=== PATIENT | female | born 1935 | race Two or more races ===

== ENCOUNTER 2018-10-26 12:25 | Outpatient (CLI) | payer OTHER | END 2018-10-26 15:50 | disposition home or self-care (01) | LOC: SONOGRAMA 12:25 → MAMO-SONO 13:15 → SONOGRAMA 15:50 | DX: E05.20 Thyrotoxicosis with toxic multinodular goiter without thyrotoxic crisis or storm (principal) ==

== ENCOUNTER 2020-01-28 09:32 | Outpatient (CLI) | payer OTHER | END 2020-01-28 09:50 | disposition home or self-care (01) | LOC: SONOGRAMA 09:32 → MAMO-SONO 10:15 | PROVIDERS: ATTEND Internal Medicine Endocrinology, Diabetes & Metabolism | DX: E05.20 Thyrotoxicosis with toxic multinodular goiter without thyrotoxic crisis or storm (principal) ==

== ENCOUNTER 2021-04-02 08:33 | Outpatient (CLI) | payer OTHER | END 2021-04-02 08:42 | disposition home or self-care (01) | LOC: SONOGRAMA 08:33 → MAMO-SONO 10:15 | PROVIDERS: ATTEND Internal Medicine Endocrinology, Diabetes & Metabolism | DX: E05.20 Thyrotoxicosis with toxic multinodular goiter without thyrotoxic crisis or storm (principal) ==